=== PATIENT | female | born 1985 | race Caucasian/White ===

== ENCOUNTER → 2017-01-03 | Outpatient (CLI) | payer OTHER | LOC: LAB 15:20 | PROVIDERS: ATTEND Family Medicine | DX: N91.2 Amenorrhea, unspecified (principal) | CPT/HCPCS: 36415; 84702 ==

== ENCOUNTER → 2017-01-31 | Outpatient (CLI) | payer OTHER ==
--- NOTE | 2017-02-01 00:56 | DI ---
US OB LESS THAN 14 WEEKS,01/31/2017 2:20 PM: Clinical History: Amenorrhea Previous Exam: None at this facility. Findings: Multiple transabdominal grayscale and color Doppler sonographic images are obtained through the pelvi s demonstrating a single live intrauterine gestation measuring a crown-rump length of 14 mm correspon ding with an estimated gestational age of 7 weeks 5 days. The right ovary is normal measuring 3.9 x 2.6 x 2.9 cm and the left ovary measures 3.9 x 2.0 x 2.4 cm with normal Doppler flow. Detected Doppler heart tones measured 161 beats per minute. Impression: A single live intrauterine gestation with estimated gestational age of 7 weeks 5 days.
== END ==
LOC: US 14:18
PROVIDERS: ATTEND Family Medicine
DX: Z36 Encounter for antenatal screening of mother (principal)
CPT/HCPCS: 76801

== ENCOUNTER 2017-09-05 08:20 | Inpatient (IN) ==
[2017-09-05] MEDS ORDERED: NORMAL SALINE 10 ML SYRINGE FLUSH IVP PRN ×2 (08:27→12:07)
[2017-09-05 10:05] LABS: Hematocrit [HCT] 39.1 % (37.0-47.0); Hemoglobin [HGB] 13.5 g/dL (12.0-16.0); MEAN CORPUSCULAR HEMOGLOBIN 34.6 PG (27-31); MEAN CORPUSCULAR HGB CONC 34.5 g/dL (33-37); MEAN CORPUSCULAR VOLUME 100.3 FL (81-99); MEAN PLATELET VOLUME 9.2 FL (7.4-12.2); RED BLOOD COUNT 3.9 10^6/uL (4.20-5.40)
[2017-09-05] MEDS ORDERED: Metoclopramide Inj 10 MG/2 ML VIAL IV ONE (12:07)
[2017-09-05] MEDS ORDERED: Lactated Ringers 1,000 ML PRIMARY IV ONE ×2 (12:07→13:59)
[2017-09-05] MEDS ORDERED: CefOXitin Inj 2 GM in Sodium Chloride 0.9% 100 ML IV ONE (12:07)
[2017-09-05] MEDS ORDERED: LIDOCAINE HCL 2 % 10 ML JELLY URO-JECT TOPICAL PRN (12:07)
[2017-09-05] MEDS ORDERED: LIDOCAINE W/ SODIUM BICARB 0.5 ML SYR SUBD PRN (12:07)
[2017-09-05] MEDS ORDERED: Famotidine Inj 20 MG in Normal Saline Flush 10 ML IVP ONE (12:07)
[2017-09-05] MEDS ORDERED: CITRIC ACID/SODIUM CITRATE 30 ML CUP PO ONE (12:07)
[2017-09-05] MEDS ORDERED: Lactated Ringers 1,000 ML PRIMARY IV SCH (12:15)
[2017-09-05] MEDS ORDERED: Oxytocin 20 Units + LR 20 UNIT/1,000 ML BAG IV SCH ×2 (12:15→14:45)
--- NOTE | 2017-09-05 12:54 | OB.PROGRES ---
Date and Time of Service: 09/05/17 @ 1245 Interval History: Jesica presented this morning with some painful contractions that were initially about 2 per hours. She denied any vaginal bleeding or leakage of fluid on presentation to labor and delivery. She reported that baby was moving well. Over her time on labor and delivery, her contractions did get closer together and became more painful. She is scheduled for a primary section for breech presentation in 2 days. Objective - Cervical Exam Cervical Exam: 2-3/80/-2 per RN at 1015 [place]: currently every 2-3 minutes, palpating moderate to hard. Heart Rate: 140s, reactive, no decels noted. Heart Rate Interpretation Category: Category I - Labs CBC and BMP: 09/05/17 09:51 - Vital Signs Last Taken Vital Signs: Vital Signs - Last Taken Temperature 98.1 F 09/05/17 12:03 Pulse Rate 92 09/05/17 12:03 Respiratory Rate 18 09/05/17 12:03 Blood Pressure 116/74 09/05/17 12:03 Pulse Ox 95 09/05/17 12:03 Assessment and Plan - Patient Problems (1) Breech presentation Current Visit: Yes Status: Acute Code(s): O32.1XX0 - Maternal care for breech presentation, not applicable or unspecified (2) Uterine contractions Current Visit: Yes Status: Acute - Assessment / Plan Additional Assessment/Plan Details: -pt's contraction pattern has become more regular and painful during her time here. -c/s was called around 1210. -will proceed as soon as OR crew is ready and pt's spouse has arrived from his work site out of town. -pt's consent already signed.
[2017-09-05] MEDS ORDERED: fentaNYL Inj 100 MCG/2 ML VIAL ONE (12:56)
[2017-09-05] MEDS ORDERED: Oxytocin 20 Units + LR 20 UNIT/1,000 ML BAG IV ONE (12:57)
[2017-09-05] MEDS ORDERED: Sodium Chloride 0.9% vial 10 ML ONE (12:58)
[2017-09-05] MEDS ORDERED: PHENYLEPHRINE 10,000 MCG/1 ML VIAL ONE (12:58)
[2017-09-05] MEDS ORDERED: Naloxone Inj 0.01 MG, Sodium Chloride 0.9% vial 1 ML IVP PRN ×2 (14:41)
[2017-09-05] MEDS ORDERED: Famotidine Inj 20 MG in Normal Saline Flush 10 ML IVP PRN (14:41)
[2017-09-05] MEDS ORDERED: ONDANSETRON 4 MG/2 ML VIAL IVP PRN (14:41)
[2017-09-05] MEDS ORDERED: DIPH,PERTUSS,TET(ADACEL) VAC/PF 0.5 ML (Tdap) IM ONE (14:41)
[2017-09-05] MEDS ORDERED: diphenhydrAMINE 50 MG/1 ML VIAL IV PRN (14:41)
[2017-09-05] MEDS ORDERED: Nalbuphine Inj 20 MG/ML Ampule IVP PRN (14:41)
[2017-09-05] MEDS ORDERED: CALCIUM CARBONATE 500 MG (TUMS) CHEWABLE TABLET PO PRN (14:41)
[2017-09-05] MEDS ORDERED: LANOLIN HPA 40 GM TUBE TOPICAL PRN (14:41)
[2017-09-05] MEDS ORDERED: diphenhydrAMINE 25 MG CAPSULE PO PRN (14:41)
[2017-09-05] MEDS ORDERED: METHYLERGONOVINE MALEATE 0.2 MG/1 ML VIAL IM PRN (14:41)
--- NOTE | 2017-09-05 14:57 | CRNA.PROGR ---
Anesthesia Time - - Start date: 09/05/17 End date: 09/05/17 - Procedure/Recovery Time Anesthesia : Time In: 13:17 Anesthesia : Time Out: 14:19 Anesthesia : Total Time: 62 - Total Anesthesia Time Total Anesthesia Time (minutes): 62 - Other Weight: 88.451 kg Height: 5 ft 6 in Body Mass Index (BMI): 31.4 Physical Status: P2 (, recent respiratory/current respiratory ailment. Breech presentation.) Anesthesia Type: Spinal Block
--- NOTE | 2017-09-05 14:57 | CRNA.PROGR ---
Anesthesia Recovery Phase I - Post Anesthesia Evaluation Patient's Condition on Arrival in Phase I: Stable Patient's Condition on Arrival in Phase II: Stable Pain Level: 1
--- NOTE | 2017-09-05 14:58 | CRNA.PROGR ---
Post Anesthesia Phase II - Post Anesthesia Phase II Patient Stable and Discharged To: Med/Surg Care Assumed By Surgeon: Mattie Soliz MD Temperature: 97.4 F Pulse Rate: 74 Respiratory Rate: 14 Blood Pressure: 103/65 Pulse Ox: 95 Total Axel Score at Discharge: 9 Post Anesthesia Discharge Criteria Met: Yes
--- NOTE | 2017-09-05 15:14 | OB.OP.NOTE ---
Operative Report - - Surgeon: Esther Soliz MD Fermentation Manager: Flako Moses MD Anesthesia Type: Regional Anesthesia Provider: Sofiya Alarcon CRNA Surgery Date: 09/05/17 Preoperative Diagnosis: Footling breech presentation. 2. labor. 3. Desired parity Postoperative Diagnosis: same, delivered. Procedure: Primary section with bilateral tubal ligation using Filshie clips Complications: none Estimated Blood Loss (mL): 500 Urine Output (mL): 50 Fluids: 2400 cc of LR; 600 cc of LR containing pitocin Indications: Pt is a 32 yo at 38 5/7 weeks by first trimester u/s whose baby has been breech for most of her . An ECV was attempted x 2 separate occasions, and these failed. Today, she reports that she started having more painful contractions starting around 0300 this morning. When she presented to labor and delivery, her contractions were mild and irregular. She was rehydrated. Her contractions continued, and, in fact, became stronger and more regular. Baby's position was confirmed to be breech. Findings: Viable female infant, in footling breech presentation. Thin meconium noted at rupture of amniotic membranes. No nuchal cord or uterine septum was noted as a cause for the persistent breech presentation. Description of Procedure: The patient was taken to the operating room where spinal anesthesia was found to be adequate. She was then prepared and draped in the normal sterile fashion in the dorsal supine position with a leftward tilt. Time out was completed. A Pfannenstiel skin incision was then made with the scalpel and carried through to the underlying layer of fascia with Bovie. The fascia was incised in the midline and the incision extended laterally with the Bovie. The superior aspect of the fascial incision was then grasped with Santiago clamps, elevated and the underlying rectus muscles dissected off bluntly. Attention was then turned to the inferior aspect of this incision which, in a similar fashion, was grasped with Santiago clamps and the rectus muscles dissected off both bluntly and with the Bovie. The rectus muscles were then in the midline, and the peritoneum identified, tented up, and entered in a blunt fashion. The peritoneal incision was then extended superiorly and inferiorly with good visualization of the bladder. The Jett retractor was then inserted and the vesicouterine peritoneum was identified. The lower uterine segment incised in the transverse fashion with the scalpel. The uterine incision was then extended laterally in a blunt fashion. The 's feet were grasped and elevated through the uterine incision. Next the hips were gently grasped and the remainder of the infant, including the head, was delivered atraumatically. The nose and mouth were suctioned with the bulb suction and the cord was clamped and cut. The was handed off to the awaiting nurse. Cord gases and cord blood were sent for analysis. The placenta was then removed manually; the uterus exteriorized, and cleared of all clots and debris. The uterine incision was repaired with 0 Vicryl in a running, locked fashion. A second layer of the same suture was used to obtain excellent hemostasis. The peritoneal cavity was then copiously irrigated with warm saline. The uterus was returned to the abdomen. The paracolic gutters were copiously irrigated with warm saline and a second look at the uterine incision continued to reveal excellent hemostasis. The peritoneum was closed with 3-0 Vicryl. The fascia was reapproximated with 0 vicryl in a running fashion. The subcutaneous space was irrigated copiously with warm saline and the closed first with 3-0 Vicryl rapide and then more superficially with Insorb absorbable sutures. The skin was reapproximated with Steri-Strips and a Silverlon dressing applied. Fundal massage was completed with no clots in vaginal vault. The patient tolerated the procedure well. Sponge, lap, and needle counts were correct x2. Mefoxin was given preoperatively less than one hour prior to skin incision. The patient was taken to the recovery room in stable condition. Patient Problems - Patient Problem List (1) Breech presentation Status: Acute Code(s): O32.1XX0 - Maternal care for breech presentation, not applicable or unspecified Category: Medical (2) Uterine contractions Status: Acute Category: Medical
[2017-09-05] MEDS: KETOROLAC 15 MG/1 ML VIAL IVP SCH ×2 (15:18→20:52)
[2017-09-05] MEDS: NORMAL SALINE 10 ML SYRINGE FLUSH IVP PRN ×2 (15:19→17:25)
[2017-09-05] MEDS ORDERED: METHYLERGONOVINE MALEATE 0.2 MG/1 ML VIAL IM ONE (15:38)
[2017-09-05] MEDS: oxyCODONE-ACETAMINOPHEN 5-325 TAB PO PRN ×2 (16:07→20:54)
[2017-09-05] MEDS: HYDROmorphone 2 MG/1 ML IV PRN ×2 (17:24→19:11)
[2017-09-05] MEDS: GUAIFENESIN/DM 5 ML UD CUP PO PRN (17:44)
[2017-09-06] MEDS: oxyCODONE-ACETAMINOPHEN 5-325 TAB PO PRN ×6 (00:57→20:13)
[2017-09-06] MEDS: GUAIFENESIN/DM 5 ML UD CUP PO PRN ×2 (00:57→05:03)
[2017-09-06] MEDS: KETOROLAC 15 MG/1 ML VIAL IVP SCH ×3 (02:44→15:24)
[2017-09-06] MEDS: HYDROmorphone 2 MG/1 ML IV PRN (02:44)
[2017-09-06] MEDS: NORMAL SALINE 10 ML SYRINGE FLUSH IVP PRN ×2 (02:49→17:57)
[2017-09-06 05:15] LABS: Hemoglobin [HGB] 11.6 g/dL (12.0-16.0); MEAN CORPUSCULAR HEMOGLOBIN 33.6 PG (27-31); MEAN CORPUSCULAR HGB CONC 33.1 g/dL (33-37); MEAN CORPUSCULAR VOLUME 101.4 FL (81-99); MEAN PLATELET VOLUME 8.8 FL (7.4-12.2); RED BLOOD COUNT 3.45 10^6/uL (4.20-5.40)
[2017-09-06] MEDS: Prenatal Multivitamin Tab 1 TAB TAB PO SCH (09:22)
[2017-09-06] MEDS: Senna/Docusate Tab 1 TAB TAB PO SCH ×2 (09:22→20:51)
[2017-09-06] MEDS: Benzocaine/Menthol 6mg/10mg 1 EACH LOZENGE PO PRN ×2 (11:03→13:21)
[2017-09-06] MEDS: D5-LR 1,000 ML PRIMARY IV SCH ×2 (15:22→15:23)
[2017-09-06] MEDS ORDERED: KETOROLAC 15 MG/1 ML VIAL IVP SCH (17:00)
--- NOTE | 2017-09-06 17:04 | CRNA.PROGR ---
Anesthesia Note - Progress Notes Anesthesia Progress Note: Lying in bed, burping baby. She just finished feeding her. Denies headache. Denies backache. States she's been up and around. No nausea. Laboratory Results 09/06/17 Range/Units 05:04 WBC 8.64 (4.8-10.8) 10^3/uL RBC 3.45 L (4.20-5.40) 10^6/uL Hgb 11.6 L (12.0-16.0) g/dL Hct 35.0 L (37.0-47.0) % MCV 101.4 H (81-99) FL MCH 33.6 H (27-31) PG MCHC 33.1 (33-37) g/dL RDW Std Deviation 49.2 (39-50) fL RDW Coeff of Robert 13.6 (11.5-14.5) % Plt Count 130 L (140-350) 10*3/uL MPV 8.8 (7.4-12.2) FL Intake and Output (24hr x 4 totals) 09/04/17 09/05/17 09/06/17 09/07/17 05:59 05:59 05:59 05:59 Intake Total 7700 / 7700 3065 / 3065 Output Total 2125 / 2125 1800 / 1800 Balance 5575 / 5575 1265 / 1265 Vital Signs - Last Taken Temperature 98.1 F 09/06/17 13:00 Pulse Rate 74 09/06/17 13:00 Respiratory Rate 16 09/06/17 13:00 Blood Pressure 117/82 09/06/17 13:00 Pulse Ox 96 09/06/17 13:00 No apparent anesthetic difficulties.
--- NOTE | 2017-09-06 19:08 | OB.PROGRES ---
Subjective Post Op Day: 1 Pain Management: PO Beyer Catheter: No Flatus: Yes Diet: Regular Feeding Method: Exculsively Ambulating: No Concerns / Additional Information: C/o some right sided incisional pain. Has been up and ambulated around the nurse 's station 3 times. Tolerating regular diet. Baby is breast feeding pretty well. Objective - General General Appearance: POSITIVE: No Acute Distress, Cooperative - Cardiovacular Cardiovascular Exam: POSITIVE: RRR, No Murmur Edema: +1 Pedal Edema Extremities: Negative Kelsey's - Bilaterally - Respiratory Respiratory Exam: POSITIVE: Clear to Auscultation - Bilaterally, Breathing Non Labored - Abdomen Bowel Sounds: Hypoactive Abdominal Wound Assessment: [place] Dressing Assesstment / Plan (1) Breech presentation Current Visit: Yes Status: Acute (2) Uterine contractions Current Visit: Yes Status: Acute Assessment / Plan: -routine cares. -ambulate. -breast feeding going well. -rh positive. -rubella immune. -anticipate d/c in 1-2 days.
[2017-09-07] MEDS: IBUPROFEN 800 MG TABLET PO PRN ×2 (00:41→09:07)
[2017-09-07] MEDS: oxyCODONE-ACETAMINOPHEN 5-325 TAB PO PRN ×3 (00:41→09:08)
[2017-09-07 05:18] VITALS: RESP 20
[2017-09-07] MEDS: Prenatal Multivitamin Tab 1 TAB TAB PO SCH (09:06)
[2017-09-07] MEDS: Senna/Docusate Tab 1 TAB TAB PO SCH (09:08)
[2017-09-07 10:08] VITALS: BP 128/93; TEMP 97.6; O2SAT 94
--- NOTE | 2017-09-17 21:18 | DCSUMMARY ---
Hospitalization Summary Admit Date: 10/03/17 Discharge Date: 10/05/17 Primary Diagnosis:: Term , footling breech presentation Secondary Diagnosis:: Satisfied parity. Primary Surgery and Date: Primary section with bilateral tubal ligation on 09/05. Delivery Type: Hospital Course: Pt presented 2 days prior to her previously scheduled for breech presentation with increasingly painful uterine contractions. She also had cervical change. She was taken for primary section secondary to labor. / Postop Complications: Jesica had a very normal, uneventful postoperative course. Her pain was well controlled with percocet and motrin. Baby was breast feeding well. On the day of discharge, she was independent in her activities of daily living, baby was nursing well and her pain continued to be well controlled. She was requesting discharge home. [place] Complications: none Exam - Vitals Vital Signs: Vital Signs Temperature 97.6 F Temperature Source Oral Pulse Rate [Pulse Oximeter] 73 Pulse Rate 92 Respiratory Rate 20 Blood Pressure [Right Arm] 128/93 Blood Pressure 111/80 Pulse Ox 94 Oxygen Flow Rate RA Oxygen Delivery Method Room Air Height 5 ft 6 in Weight 195 lb - General General Appearance: No Acute Distress, Cooperative - Respiratory Respiratory Exam: POSITIVE: Clear to Auscultation - Bilaterally, Breathing Non Labored - Cardiovascular Cardiovascular Exam: POSITIVE: RRR, No Murmur - GI/Abdominal GI/Abdominal Exam: POSITIVE: Normal Bowel Sounds, Non Tender, Non Distended, Soft - Extremities Extremities Exam: POSITIVE: Normal Capillary Refill, Negative Kelsey's sign, +2 Edema - Neurological Neurological Exam: POSITIVE: Alert, Oriented x 3 - Psychiatric Psychiatric Exam: POSITIVE: Normal Affect, Normal Mood - Integumentary Integumentary Exam: POSITIVE: Normal Color, Warm, Dry Patient Problems - Patient Problem List (1) Breech presentation Status: Acute Code(s): O32.1XX0 - Maternal care for breech presentation, not applicable or unspecified Qualifiers: Fetus number: single or unspecified fetus Qualified Code(s): O32.1XX0 - Maternal care for breech presentation, not applicable or unspecified Category: Medical (2) Uterine contractions Status: Acute Category: Medical
== END 2017-09-07 10:45 | disposition home or self-care (01) | DRG 766 ==
LOC: OBOP 08:20 → OBOR 12:07 → OBIP 14:46
PROVIDERS: ADMIT Family Medicine; ATTEND Family Medicine